=== PATIENT | male | born 1980 | race Caucasian/White ===

== ENCOUNTER 2019-10-09 09:03 | Emergency (ER) | payer MEDICAID, OTHER ==
[~2019-10-09] VITALS: Ht 182.9 cm; Wt 70.5 kg
[~2019-10-09 09:03] MED LIST: CHLO473M3 PO; CLIN-90 PO; CLIN150C17 PO; CLIN300C17 PO; ESOM20CA PO; HYDR-4383 PO; IBUP-1573 PO; OMEP-84 PO; ONDA4TAB6 PO; ONDA8TAB9 PO; PROM25TA14 PO; SUCR1ORA2 PO; SUCR1TAB PO; ZOF4T PO
--- NOTE | 2019-10-09 09:22 | NUR ---
ABRAN WHITING AT BEDSIDE.
[2019-10-09] MEDS ORDERED: famotidine/PF 10 mg/ml inj IV ONE (09:30)
[2019-10-09] MEDS ORDERED: normal saline 1000ML IV soln IVB ONE (09:30)
[2019-10-09] MEDS ORDERED: haloperidol lactate 5mg/ml inj IM ONE ×2 (09:30→10:35)
[2019-10-09] MEDS ORDERED: ketorolac tromethamine 15mg/ml inj. IV ONE (09:30)
[2019-10-09] MEDS ORDERED: proMETHazine 6.25 mg/5 ml UD oral syrup PO ONE (09:30)
[2019-10-09 09:55] LABS: BASOPHILS # (AUTO) 0.1 X10'3 (0-0.2); BASOPHILS % (AUTO) 0.4 % (0-1); EOSINOPHILS % (AUTO) 0 % (0-6); HEMATOCRIT 45.6 % (42.0-52.0); HEMOGLOBIN 15.9 g/dl (14.0-17.9); LYMPHOCYTES # (AUTO) 1.6 X10'3 (1.1-4.8); LYMPHOCYTES % (AUTO) 9.6 % (21-51); MEAN CORPUSCULAR HEMOGLOBIN 29.5 PG (27.0-31.0); MEAN CORPUSCULAR HGB CONC 34.9 g/dL (33.0-36.5); MEAN CORPUSCULAR VOLUME 84.7 FL (78-98); MEAN PLATELET VOLUME 7.1 FL (7.4-10.4); MONOCYTES # (AUTO) 1.1 X10'3 (0-0.9); MONOCYTES % (AUTO) 6.4 % (2-12); NEUTROPHILS # (AUTO) 14.3 X10'3 (1.8-7.7); NEUTROPHILS % (AUTO) 83.6 % (42-75); PLATELET COUNT 320 X10'3 (140-440); RED BLOOD COUNT 5.38 X10'6 (4.70-6.10); RED CELL DISTRIBUTION WIDTH 12.8 % (11.5-14.5); WHITE BLOOD COUNT 17.1 X10'3 (4.5-11.0)
[2019-10-09 10:08] LABS: ALANINE AMINOTRANSFERASE 24 U/L (12-78); ALBUMIN 4.6 G/DL (3.4-5.0); ALBUMIN/GLOBULIN RATIO 1.2 (1.1-1.5); ALKALINE PHOSPHATASE 90 IU/L (46-116); ANION GAP 13 (8-16); ASPARTATE AMINO TRANSFERASE 23 U/L (10-37); BILIRUBIN,TOTAL 0.9 MG/DL (0.1-1.0); BLOOD UREA NITROGEN 23 MG/DL (7-18); BUN/CREATININE RATIO 20.5 (5.4-32.0); CALCIUM 9.7 MG/DL (8.5-10.1); CHLORIDE 102 MMOL/L (99-107); CREATININE 1.12 MG/DL (0.60-1.10); GLUCOSE 136 MG/DL (70-104); LIPASE < 50 U/L (73-393); POTASSIUM 3.4 MMOL/L (3.5-5.1); SODIUM 142 MMOL/L (135-145); TOTAL CARBON DIOXIDE 27.5 MMOL/L (24-32); TOTAL PROTEIN 8.4 G/DL (6.4-8.2); eGFR 73 ML/MIN
[2019-10-09] MEDS ORDERED: LORazepam 2 mg/ml vial IV ONE (10:35)
[2019-10-09] MEDS ORDERED: normal saline 1000ml 1,000 ML IV ONE (11:00)
[2019-10-09] MEDS ORDERED: PROM25TA14 PO (11:25)
[2019-10-09 11:54] VITALS: BP 98/50
== END 2019-10-09 12:00 | disposition home or self-care (01) ==
LOC: ER 09:04
DX: R11.2 Nausea with vomiting, unspecified (principal); G89.29 Other chronic pain; F12.90 Cannabis use, unspecified, uncomplicated; F41.9 Anxiety disorder, unspecified; F17.200 Nicotine dependence, unspecified, uncomplicated; Z56.0 Unemployment, unspecified; Z88.0 Allergy status to penicillin; Z88.8 Allergy status to other drugs, medicaments and biological substances; Z79.899 Other long term (current) drug therapy; Z98.890 Other specified postprocedural states
CPT/HCPCS: 36415; 74018; 80053; 83690; 85025; 96361; 96372; 96374; 96375; 99284; J1630; J1885; J2060; J3490; J7030; Q0169

== ENCOUNTER 2019-10-24 20:18 | Emergency (ER) | payer OTHER ==
[~2019-10-24] VITALS: Ht 182.9 cm; Wt 70.5 kg
[2019-10-24 20:31] VITALS: BP 190/85
[2019-10-24 21:10] LABS: BASOPHILS # (AUTO) 0.1 X10'3 (0-0.2); BASOPHILS % (AUTO) 0.5 % (0-1); EOSINOPHILS % (AUTO) 0.2 % (0-6); HEMATOCRIT 46.5 % (42.0-52.0); LYMPHOCYTES # (AUTO) 1.5 X10'3 (1.1-4.8); LYMPHOCYTES % (AUTO) 10.4 % (21-51); MEAN CORPUSCULAR HEMOGLOBIN 29.2 PG (27.0-31.0); MEAN CORPUSCULAR HGB CONC 34.3 g/dL (33.0-36.5); MEAN CORPUSCULAR VOLUME 85.1 FL (78-98); MEAN PLATELET VOLUME 6.4 FL (7.4-10.4); MONOCYTES # (AUTO) 0.9 X10'3 (0-0.9); MONOCYTES % (AUTO) 5.9 % (2-12); PLATELET COUNT 336 X10'3 (140-440); RED BLOOD COUNT 5.47 X10'6 (4.70-6.10); RED CELL DISTRIBUTION WIDTH 12.7 % (11.5-14.5); WHITE BLOOD COUNT 14.5 X10'3 (4.5-11.0)
[2019-10-24 21:11] LABS: CLARITY,URINE CLEAR (Clear); COLOR,URINE YELLOW (Yellow); GLUCOSE, URINE NEGATIVE (Neg); KETONES,URINE 15 mg/dl (Neg); LEUKOCYTE ESTERASE ,URINE NEGATIVE (Neg); NITRITES, URINE NEGATIVE (Neg); OCCULT BLOOD,URINE NEGATIVE (Neg); PH,URINE 6.5 (4.8-8.0); PROTEIN,URINE TRACE mg/dl (Neg); UROBILINOGEN,URINE 0.2 E.U/dL (0.2-1.0)
[2019-10-24 21:17] LABS: UA COLLECTION TYPE CLN CATCH MIDSTREAM
[2019-10-24 21:18] LABS: BACTERIA,URINE FEW /HPF (Neg); MUCUS STRANDS MODERATE /LPF (Neg); RBC,URINE NONE SEEN /HPF (0-2); SQUAMOUS EPITHELIAL CELL,UR FEW /LPF (FEW); WBC,URINE 0-4 /HPF (0-4)
[2019-10-24 21:32] LABS: ALANINE AMINOTRANSFERASE 27 U/L (12-78); ALBUMIN 4.4 G/DL (3.4-5.0); ALBUMIN/GLOBULIN RATIO 1.3 (1.1-1.5); ALKALINE PHOSPHATASE 102 IU/L (46-116); ANION GAP 7 (8-16); ASPARTATE AMINO TRANSFERASE 20 U/L (10-37); BILIRUBIN,TOTAL 1.4 MG/DL (0.1-1.0); BLOOD UREA NITROGEN 12 MG/DL (7-18); BUN/CREATININE RATIO 11.9 (5.4-32.0); CALCIUM 9.2 MG/DL (8.5-10.1); CHLORIDE 105 MMOL/L (99-107); CREATININE 1.01 MG/DL (0.60-1.10); GLUCOSE 116 MG/DL (70-104); LIPASE 70 U/L (73-393); POTASSIUM 3.7 MMOL/L (3.5-5.1); SODIUM 140 MMOL/L (135-145); TOTAL CARBON DIOXIDE 27.7 MMOL/L (24-32); TOTAL PROTEIN 7.8 G/DL (6.4-8.2); eGFR 82 ML/MIN
[2019-10-24] MEDS ORDERED: ondansetron/PF 4mg/2ml inj IV ONE (23:30)
[2019-10-24] MEDS ORDERED: pantoprazole 40 MG vial IV ONE (23:30)
[2019-10-24] MEDS ORDERED: normal saline 1000ML IV soln IVB ONE (23:30)
[2019-10-24] MEDS ORDERED: mag hydrox/Alum hydrox/simeth 30ml oral suspension PO ONE (23:30)
[2019-10-25] MEDS ORDERED: L. R1CAP4 PO (00:40)
[2019-10-25] MEDS ORDERED: CLIN150C2 PO (00:40)
[2019-10-25] MEDS ORDERED: FAMO20TA8 PO (00:40)
[2019-10-25] MEDS ORDERED: DICY10CA88 PO (00:40)
== END 2019-10-25 00:52 | disposition home or self-care (01) ==
LOC: ER 20:20
DX: K04.7 Periapical abscess without sinus (principal); R11.2 Nausea with vomiting, unspecified; R10.13 Epigastric pain; G89.29 Other chronic pain; F10.99 Alcohol use, unspecified with unspecified alcohol-induced disorder; Z98.890 Other specified postprocedural states; Z88.0 Allergy status to penicillin; Z88.8 Allergy status to other drugs, medicaments and biological substances; Z79.899 Other long term (current) drug therapy; Y90.9 Presence of alcohol in blood, level not specified
CPT/HCPCS: 36415; 80053; 81001; 83690; 85025; 96361; 96374; 96375; 99283; C9113; J2405; J7030

== ENCOUNTER 2019-10-27 20:35 | Emergency (ER) | payer OTHER ==
[~2019-10-27] VITALS: Ht 185.4 cm; Wt 70.5 kg
[~2019-10-27 20:35] MED LIST changes: +CLIN150C2 PO; +DICY10CA88 PO; +FAMO20TA8 PO; +L. R1CAP4 PO
[2019-10-27] MEDS ORDERED: normal saline 1000ML IV soln IVB ONE (21:00)
[2019-10-27] MEDS ORDERED: ketorolac trometh. 30mg/ml inj. IV ONE (21:00)
[2019-10-27] MEDS ORDERED: CefTRIAXone/D5W-Rocephin 1gm 50 ML IV ONE (21:00)
[2019-10-27 21:23] LABS: BASOPHILS # (AUTO) 0.1 X10'3 (0-0.2); BASOPHILS % (AUTO) 0.5 % (0-1); EOSINOPHILS % (AUTO) 0.3 % (0-6); HEMATOCRIT 41.7 % (42.0-52.0); HEMOGLOBIN 14.3 g/dl (14.0-17.9); LYMPHOCYTES # (AUTO) 1.8 X10'3 (1.1-4.8); LYMPHOCYTES % (AUTO) 17.5 % (21-51); MEAN CORPUSCULAR HEMOGLOBIN 29.4 PG (27.0-31.0); MEAN CORPUSCULAR HGB CONC 34.4 g/dL (33.0-36.5); MEAN CORPUSCULAR VOLUME 85.4 FL (78-98); MEAN PLATELET VOLUME 6.4 FL (7.4-10.4); MONOCYTES # (AUTO) 1.1 X10'3 (0-0.9); MONOCYTES % (AUTO) 10.9 % (2-12); NEUTROPHILS # (AUTO) 7.3 X10'3 (1.8-7.7); NEUTROPHILS % (AUTO) 70.8 % (42-75); PLATELET COUNT 269 X10'3 (140-440); RED BLOOD COUNT 4.88 X10'6 (4.70-6.10); RED CELL DISTRIBUTION WIDTH 12.4 % (11.5-14.5); WHITE BLOOD COUNT 10.4 X10'3 (4.5-11.0)
[2019-10-27] MEDS ORDERED: iohexol 300mg/ml 100ml inj. ONE (21:31)
[2019-10-27 21:36] LABS: ALANINE AMINOTRANSFERASE 61 U/L (12-78); ALBUMIN 3.8 G/DL (3.4-5.0); ALBUMIN/GLOBULIN RATIO 1.1 (1.1-1.5); ALKALINE PHOSPHATASE 113 IU/L (46-116); ANION GAP 8 (8-16); ASPARTATE AMINO TRANSFERASE 36 U/L (10-37); BILIRUBIN,TOTAL 0.4 MG/DL (0.1-1.0); BLOOD UREA NITROGEN 11 MG/DL (7-18); BUN/CREATININE RATIO 12.5 (5.4-32.0); CALCIUM 8.5 MG/DL (8.5-10.1); CHLORIDE 102 MMOL/L (99-107); CREATININE 0.88 MG/DL (0.60-1.10); GLUCOSE 127 MG/DL (70-104); POTASSIUM 3.4 MMOL/L (3.5-5.1); SODIUM 138 MMOL/L (135-145); TOTAL CARBON DIOXIDE 28.3 MMOL/L (24-32); TOTAL PROTEIN 7.3 G/DL (6.4-8.2); eGFR > 90 ML/MIN
[2019-10-27] MEDS ORDERED: CEPH250T PO (22:48)
[2019-10-27] MEDS ORDERED: NAPR-56 PO (22:48)
[2019-10-27] MEDS ORDERED: TRAM50TA2 PO (22:48)
[2019-10-27 23:09] VITALS: BP 125/69
== END 2019-10-27 23:09 | disposition home or self-care (01) ==
LOC: ER 20:36
DX: K04.7 Periapical abscess without sinus (principal); G89.29 Other chronic pain; F41.9 Anxiety disorder, unspecified; F12.90 Cannabis use, unspecified, uncomplicated; Z88.0 Allergy status to penicillin; Z88.8 Allergy status to other drugs, medicaments and biological substances; Z79.899 Other long term (current) drug therapy; Z79.2 Long term (current) use of antibiotics; Z87.11 Personal history of peptic ulcer disease; Z56.0 Unemployment, unspecified; Z98.890 Other specified postprocedural states
CPT/HCPCS: 36415; 70487; 80053; 85025; 96365; 96375; 99284; J0696; J1885; J7030; Q9967

== ENCOUNTER 2020-11-02 12:14 | Emergency (ER) | payer MEDICAID ==
[~2020-11-02] VITALS: Ht 182.9 cm; Wt 70.0 kg
[~2020-11-02 12:14] MED LIST changes: -CLIN-90 PO; +CLIN-97 PO; -CLIN150C2 PO
[2020-11-02 12:42] LABS: BASOPHILS # (AUTO) 0.1 X10'3 (0-0.2); BASOPHILS % (AUTO) 0.6 % (0-1); EOSINOPHILS % (AUTO) 0 % (0-6); HEMATOCRIT 48.5 % (42.0-52.0); HEMOGLOBIN 16.8 g/dl (14.0-17.9); LYMPHOCYTES # (AUTO) 2.3 X10'3 (1.1-4.8); LYMPHOCYTES % (AUTO) 10.8 % (21-51); MEAN CORPUSCULAR HEMOGLOBIN 28.9 PG (27.0-31.0); MEAN CORPUSCULAR HGB CONC 34.6 g/dL (33.0-36.5); MEAN CORPUSCULAR VOLUME 83.5 FL (78-98); MEAN PLATELET VOLUME 6.9 FL (7.4-10.4); MONOCYTES # (AUTO) 1.8 X10'3 (0-0.9); MONOCYTES % (AUTO) 8.4 % (2-12); NEUTROPHILS # (AUTO) 16.7 X10'3 (1.8-7.7); NEUTROPHILS % (AUTO) 80.2 % (42-75); PLATELET COUNT 347 X10'3 (140-440); RED BLOOD COUNT 5.81 X10'6 (4.70-6.10); WHITE BLOOD COUNT 20.9 X10'3 (4.5-11.0)
[2020-11-02] MEDS ORDERED: ondansetron/PF 4mg/2ml inj IV ONE (12:45)
[2020-11-02] MEDS ORDERED: diphenhydrAMINE 50 mg/ml inj IV ONE (12:45)
[2020-11-02] MEDS ORDERED: ketorolac trometh. 30mg/ml inj. IV ONE (12:45)
[2020-11-02] MEDS ORDERED: haloperidol lactate 5mg/ml inj IM ONE (12:45)
[2020-11-02] MEDS ORDERED: normal saline 1000ML IV soln IVB ONE (12:45)
[2020-11-02 12:53] LABS: ALANINE AMINOTRANSFERASE 38 U/L (12-78); ALBUMIN 4.9 G/DL (3.4-5.0); ALBUMIN/GLOBULIN RATIO 1.2 (1.1-1.5); ALKALINE PHOSPHATASE 98 IU/L (46-116); AMYLASE 52 U/L (25-115); ANION GAP 13 (8-16); ASPARTATE AMINO TRANSFERASE 32 U/L (10-37); BILIRUBIN,TOTAL 2.1 MG/DL (0.1-1.0); BLOOD UREA NITROGEN 41 MG/DL (7-18); BUN/CREATININE RATIO 32.3 (5.4-32.0); CALCIUM 9.7 MG/DL (8.5-10.1); CHLORIDE 100 MMOL/L (99-107); CREATININE 1.27 MG/DL (0.60-1.10); GLUCOSE 120 MG/DL (70-104); LIPASE 63 U/L (73-393); SODIUM 139 MMOL/L (135-145); TOTAL CARBON DIOXIDE 26.2 MMOL/L (24-32); eGFR 62 ML/MIN
[2020-11-02 15:36] VITALS: BP 137/80
== END 2020-11-02 15:40 | disposition home or self-care (01) ==
LOC: ER 12:14
DX: R11.15 Cyclical vomiting syndrome unrelated to migraine (principal); R11.2 Nausea with vomiting, unspecified; R10.10 Upper abdominal pain, unspecified; G89.29 Other chronic pain; F41.9 Anxiety disorder, unspecified; F17.200 Nicotine dependence, unspecified, uncomplicated; F12.90 Cannabis use, unspecified, uncomplicated; Z87.11 Personal history of peptic ulcer disease; Z72.89 Other problems related to lifestyle; Z56.0 Unemployment, unspecified; Z88.0 Allergy status to penicillin; Z88.8 Allergy status to other drugs, medicaments and biological substances; Z79.2 Long term (current) use of antibiotics; Z79.899 Other long term (current) drug therapy
CPT/HCPCS: 36415; 80053; 82150; 83690; 85025; 96361; 96372; 96374; 96375; 99284; J1200; J1630; J1885; J2405; J7030

== ENCOUNTER 2021-02-14 18:17 | Emergency (ER) | payer MEDICAID ==
[~2021-02-14] VITALS: Ht 182.9 cm; Wt 75.0 kg
[2021-02-14 19:13] LABS: BASOPHILS # (AUTO) 0.1 X10'3 (0-0.2); BASOPHILS % (AUTO) 0.5 % (0-1); EOSINOPHILS % (AUTO) 0 % (0-6); HEMOGLOBIN 16.7 g/dl (14.0-17.9); LYMPHOCYTES # (AUTO) 2.2 X10'3 (1.1-4.8); MEAN CORPUSCULAR HEMOGLOBIN 28.6 PG (27.0-31.0); MEAN CORPUSCULAR HGB CONC 34.1 g/dL (33.0-36.5); MEAN CORPUSCULAR VOLUME 83.7 FL (78-98); MONOCYTES # (AUTO) 1.4 X10'3 (0-0.9); MONOCYTES % (AUTO) 6.3 % (2-12); NEUTROPHILS # (AUTO) 18.2 X10'3 (1.8-7.7); NEUTROPHILS % (AUTO) 83.2 % (42-75); PLATELET COUNT 362 X10'3 (140-440); RED BLOOD COUNT 5.86 X10'6 (4.70-6.10); RED CELL DISTRIBUTION WIDTH 13.1 % (11.5-14.5); WHITE BLOOD COUNT 21.9 X10'3 (4.5-11.0)
[2021-02-14 19:22] LABS: ALANINE AMINOTRANSFERASE 30 U/L (12-78); ALBUMIN 5.1 G/DL (3.4-5.0); ALBUMIN/GLOBULIN RATIO 1.2 (1.1-1.5); ALKALINE PHOSPHATASE 95 IU/L (46-116); ANION GAP 14 (8-16); ASPARTATE AMINO TRANSFERASE 16 U/L (10-37); BILIRUBIN,TOTAL 1.3 MG/DL (0.1-1.0); BLOOD UREA NITROGEN 38 MG/DL (7-18); CALCIUM 10.2 MG/DL (8.5-10.1); CHLORIDE 103 MMOL/L (99-107); CREATININE 1.46 MG/DL (0.60-1.10); GLUCOSE 156 MG/DL (70-104); LIPASE 73 U/L (73-393); POTASSIUM 4.2 MMOL/L (3.5-5.1); SODIUM 143 MMOL/L (135-145); TOTAL CARBON DIOXIDE 25.8 MMOL/L (24-32); TOTAL PROTEIN 9.2 G/DL (6.4-8.2); eGFR 53 ML/MIN
[2021-02-14] MEDS ORDERED: normal saline 1000ML IV soln IVB ONE (19:45)
[2021-02-14] MEDS ORDERED: haloperidol lactate 5mg/ml inj IM ONE (19:50)
[2021-02-14] MEDS ORDERED: LORazepam 2 mg/ml vial IV ONE (19:55)
--- NOTE | 2021-02-14 20:06 | NUR ---
patient provided urinal for urine sample
--- NOTE | 2021-02-14 20:15 | NUR ---
patieent unable to void, stood at bedside
--- NOTE | 2021-02-14 20:38 | NUR ---
WITH PATIENT' PERMISSION, SPOKE WITH MOTHER
--- NOTE | 2021-02-14 21:35 | NUR ---
Mother called, she is on her way to come and get him.
[2021-02-14 21:37] VITALS: BP 107/66
== END 2021-02-14 22:12 | disposition home or self-care (01) ==
LOC: ER 18:17
DX: R11.15 Cyclical vomiting syndrome unrelated to migraine (principal); R11.2 Nausea with vomiting, unspecified; R10.13 Epigastric pain; E86.0 Dehydration; G89.29 Other chronic pain; F41.9 Anxiety disorder, unspecified; F17.200 Nicotine dependence, unspecified, uncomplicated; F12.90 Cannabis use, unspecified, uncomplicated; Z87.11 Personal history of peptic ulcer disease; Z72.89 Other problems related to lifestyle; Z56.0 Unemployment, unspecified; Z98.890 Other specified postprocedural states; Z88.0 Allergy status to penicillin; Z88.8 Allergy status to other drugs, medicaments and biological substances; Z79.2 Long term (current) use of antibiotics; Z79.899 Other long term (current) drug therapy
CPT/HCPCS: 36415; 80053; 83690; 85025; 96372; 96374; 99284; J1630; J2060; J7030; 96361

== ENCOUNTER 2021-02-16 21:52 | Inpatient (IN) | payer MEDICAID ==
[~2021-02-16] VITALS: Ht 185.4 cm; Wt 75.2 kg
[2021-02-16] MEDS ORDERED: ondansetron 4mg rapidly disintigrating tab PO STA (21:58)
[2021-02-16] MEDS ORDERED: haloperidol lactate 5mg/ml inj IM ONE (23:20)
[2021-02-16] MEDS ORDERED: LORazepam 2 mg/ml vial IV ONE (23:55)
[2021-02-16] MEDS ORDERED: normal saline 1000ml 1,000 ML IV ONE (23:55)
[2021-02-17 00:24] LABS: ANION GAP 12 (8-16); BLOOD UREA NITROGEN 19 MG/DL (7-18); CALCIUM 9.3 MG/DL (8.5-10.1); CHLORIDE 103 MMOL/L (99-107); CREATININE 1.12 MG/DL (0.60-1.10); GLUCOSE 167 MG/DL (70-104); POTASSIUM 3.8 MMOL/L (3.5-5.1); SODIUM 142 MMOL/L (135-145); TOTAL CARBON DIOXIDE 26.9 MMOL/L (24-32); eGFR 72 ML/MIN
[2021-02-17 00:25] LABS: ALBUMIN 4.7 G/DL (3.4-5.0)
[2021-02-17] MEDS ORDERED: metoclopramide 5 mg/ml inj IV ONE (02:15)
[2021-02-17] MEDS ORDERED: diphenhydrAMINE 50 mg/ml inj IV ONE ×2 (02:15→06:20)
[2021-02-17] MEDS ORDERED: iohexol 300mg/ml 100ml inj. ONE (03:21)
[2021-02-17] MEDS ORDERED: diphenhydrAMINE 50 mg/ml inj IV STA (03:38)
[2021-02-17 04:44] LABS: BASOPHILS # (AUTO) 0.2 X10'3 (0-0.2); BASOPHILS % (AUTO) 1.3 % (0-1); EOSINOPHILS # (AUTO) 0.1 X10'3 (0-0.9); EOSINOPHILS % (AUTO) 0.4 % (0-6); HEMATOCRIT 46.1 % (42.0-52.0); HEMOGLOBIN 15.6 g/dl (14.0-17.9); LYMPHOCYTES # (AUTO) 2.2 X10'3 (1.1-4.8); LYMPHOCYTES % (AUTO) 14.7 % (21-51); MEAN CORPUSCULAR HEMOGLOBIN 28.9 PG (27.0-31.0); MEAN CORPUSCULAR HGB CONC 33.8 g/dL (33.0-36.5); MEAN CORPUSCULAR VOLUME 85.5 FL (78-98); MEAN PLATELET VOLUME 7.4 FL (7.4-10.4); MONOCYTES % (AUTO) 6.9 % (2-12); NEUTROPHILS # (AUTO) 11.3 X10'3 (1.8-7.7); NEUTROPHILS % (AUTO) 76.7 % (42-75); PLATELET COUNT 365 X10'3 (140-440); RED BLOOD COUNT 5.39 X10'6 (4.70-6.10); RED CELL DISTRIBUTION WIDTH 12.7 % (11.5-14.5); WHITE BLOOD COUNT 14.8 X10'3 (4.5-11.0)
[2021-02-17] MEDS ORDERED: haloperidol lactate 5mg/ml inj IM ONE ×2 (06:20→06:45)
[2021-02-17] MEDS ORDERED: morphine 2 MG/ML inj. syringe IV PRN (06:35)
[2021-02-17] MEDS ORDERED: potassium Cl 20 mEq SR tablet PO PRN ×2 (06:35)
[2021-02-17] MEDS ORDERED: magnesium Cl slow-release 64mg tablet PO PRN (06:35)
[2021-02-17] MEDS ORDERED: acetaminophen 325mg tablet PO PRN (06:35)
[2021-02-17] MEDS ORDERED: ondansetron/PF 4mg/2ml inj IV PRN (06:35)
[2021-02-17] MEDS ORDERED: magnesium 4gm in 100ml NS 100 ML IV PRN (06:35)
[2021-02-17] MEDS ORDERED: magnesium 2GM in 50ml NS 50 ML IV PRN (06:35)
[2021-02-17] MEDS ORDERED: potassium Cl 40MEQ/1/2NS 520ml 520 ML IV PRN ×2 (06:35)
[2021-02-17] MEDS: normal saline 1000ml 1,000 ML IV SCH ×2 (06:57→15:51)
[2021-02-17] MEDS: K and/or MAG REPLACEMENT MC SCH ×2 (08:00→20:00)
[2021-02-17 12:09] LABS: HEMOGLOBIN 13.4 g/dl (14.0-17.9); MEAN PLATELET VOLUME 6.5 FL (7.4-10.4); PLATELET COUNT 281 X10'3 (140-440)
[2021-02-17 12:10] LABS: BASOPHILS % (AUTO) 0.4 % (0-1); EOSINOPHILS % (AUTO) 0.2 % (0-6); HEMATOCRIT 39.6 % (42.0-52.0); LYMPHOCYTES # (AUTO) 2.6 X10'3 (1.1-4.8); LYMPHOCYTES % (AUTO) 24.4 % (21-51); MEAN CORPUSCULAR HEMOGLOBIN 28.7 PG (27.0-31.0); MEAN CORPUSCULAR HGB CONC 33.9 g/dL (33.0-36.5); MEAN CORPUSCULAR VOLUME 84.8 FL (78-98); MONOCYTES # (AUTO) 0.8 X10'3 (0-0.9); MONOCYTES % (AUTO) 7.7 % (2-12); NEUTROPHILS # (AUTO) 7.3 X10'3 (1.8-7.7); NEUTROPHILS % (AUTO) 67.3 % (42-75); RED BLOOD COUNT 4.66 X10'6 (4.70-6.10); RED CELL DISTRIBUTION WIDTH 12.6 % (11.5-14.5); WHITE BLOOD COUNT 10.8 X10'3 (4.5-11.0)
[2021-02-17] MEDS ORDERED: NO HOME MEDS (14:49)
--- NOTE | 2021-02-17 14:58 | NUR ---
Called ED for report. ED nurse unavailable at this time to give report.
--- NOTE | 2021-02-17 15:30 | NUR ---
Patient in room ED 16. I have received report from JOHN Lainez and had the opportunity to ask questions and assume patient care.
--- NOTE | 2021-02-17 16:11 | NUR ---
Received patient to Room 350B, oriented patient to room and call light. Patient is alert and oriented, no nausea and vomiting. Made patient comfortable, arrived in a hospital bed. Patient placed belongings in bedside table. Skin check done.
--- NOTE | 2021-02-17 17:54 | NUR ---
PAGER ID: [phone] MESSAGE: Lalasesarsammy Puente [phone] - Room 350B - Patient and ED nurse stated the only med that worked for his nausea so far has been the Haldol dose received in the ER this AM. Possible to have an order for Haldol PRN?
[2021-02-17] MEDS ORDERED: haloperidol 1mg tablet PO PRN (18:00)
--- NOTE | 2021-02-17 18:24 | NUR ---
Patient in room [facility]. I have received report from Monica/JOHN Jules'S and had the opportunity to ask questions and assume patient care.
[2021-02-17 18:30] VITALS: BP 113/61
--- NOTE | 2021-02-17 19:04 | NUR ---
Problems reprioritized. Patient report given, questions answered & plan of care reviewed with JOHN Valenzuela.
[2021-02-17 23:33] VITALS: BP 113/70
[2021-02-18] MEDS: normal saline 1000ml 1,000 ML IV SCH ×2 (02:13→12:35)
[2021-02-18 06:16] LABS: BASOPHILS # (AUTO) 0.1 X10'3 (0-0.2); BASOPHILS % (AUTO) 0.9 % (0-1); EOSINOPHILS # (AUTO) 0.1 X10'3 (0-0.9); EOSINOPHILS % (AUTO) 1.4 % (0-6); HEMATOCRIT 38.9 % (42.0-52.0); LYMPHOCYTES # (AUTO) 3.5 X10'3 (1.1-4.8); LYMPHOCYTES % (AUTO) 37.7 % (21-51); MEAN CORPUSCULAR HEMOGLOBIN 28.4 PG (27.0-31.0); MEAN CORPUSCULAR HGB CONC 33.4 g/dL (33.0-36.5); MEAN CORPUSCULAR VOLUME 85.2 FL (78-98); MEAN PLATELET VOLUME 6.9 FL (7.4-10.4); MONOCYTES # (AUTO) 0.7 X10'3 (0-0.9); MONOCYTES % (AUTO) 7.5 % (2-12); NEUTROPHILS # (AUTO) 4.9 X10'3 (1.8-7.7); NEUTROPHILS % (AUTO) 52.5 % (42-75); PLATELET COUNT 262 X10'3 (140-440); RED BLOOD COUNT 4.56 X10'6 (4.70-6.10); RED CELL DISTRIBUTION WIDTH 12.7 % (11.5-14.5); WHITE BLOOD COUNT 9.3 X10'3 (4.5-11.0)
[2021-02-18 06:36] LABS: ALBUMIN 3.2 G/DL (3.4-5.0); ANION GAP 6 (8-16); BLOOD UREA NITROGEN 12 MG/DL (7-18); BUN/CREATININE RATIO 15.8 (5.4-32.0); CALCIUM 8.3 MG/DL (8.5-10.1); CHLORIDE 111 MMOL/L (99-107); CREATININE 0.76 MG/DL (0.60-1.10); GLUCOSE 100 MG/DL (70-104); MAGNESIUM 2.3 MG/DL (1.5-2.4); POTASSIUM 3.6 MMOL/L (3.5-5.1); SODIUM 144 MMOL/L (135-145); TOTAL CARBON DIOXIDE 26.9 MMOL/L (24-32); eGFR > 90 ML/MIN
--- NOTE | 2021-02-18 06:42 | NUR ---
Patient in room [facility] 350. I have received report from JOHN Sorenson and had the opportunity to ask questions and assume patient care.
[2021-02-18 08:00] VITALS: BP 122/59
[2021-02-18] MEDS: K and/or MAG REPLACEMENT MC SCH (08:00)
[2021-02-18] MEDS ORDERED: ONDA4TAB6 PO (10:53)
[2021-02-18] MEDS ORDERED: ACET-1008 PO (10:54)
[2021-02-18 11:00] VITALS: BP 125/64
--- NOTE | 2021-02-18 11:17 | NUR ---
Orientee documentation: I have reviewed and agree with all interventions, assessments performed and documented by JOHN Schmidt. [place]ee Medication Administration: For this medication-pass time frame, all medication were reviewed, dispensed, administered and documented per hospital policy by JOHN Schmidt.
--- NOTE | 2021-02-18 13:30 | NUR ---
Patient discharged to home with mom accompanying and driving. Patient discharged with all belongings, alert and oriented. Patient was given opportunity to ask questions and have them answered. Patient to follow up with primary care physician within one week. Patient ambulated himself to the front of the hospital. Patient provided with discharge instructions and recommendations for care.
== END 2021-02-18 13:40 | disposition home or self-care (01) | DRG 249 ==
LOC: ER 21:53 → ED HOLD 02-17 06:31 → SUR 3N 02-17 15:40
PROVIDERS: ADMIT Internal Medicine; ATTEND Internal Medicine
PROC: BW211ZZ Computerized Tomography (CT Scan) of Abdomen and Pelvis using Low Osmolar Contrast (ICD-10-PCS; principal; 2021-02-17)
DX: R11.15 Cyclical vomiting syndrome unrelated to migraine (principal); N18.30 Chronic kidney disease, stage 3 unspecified; F12.90 Cannabis use, unspecified, uncomplicated; F17.210 Nicotine dependence, cigarettes, uncomplicated; F41.9 Anxiety disorder, unspecified; G89.29 Other chronic pain; Z79.899 Other long term (current) drug therapy; Z87.11 Personal history of peptic ulcer disease; Z88.0 Allergy status to penicillin; Z88.8 Allergy status to other drugs, medicaments and biological substances
CPT/HCPCS: 36415; 74177; 80048; 83605; 83735; 84145; 85025; 87040; 87081; 96372; 96374; 99285; G0378; J1200; J1630; J2060; J2765; J7030; Q9967

== ENCOUNTER 2022-07-10 09:28 | Emergency (ER) | payer MEDICAID ==
[~2022-07-10] VITALS: Ht 182.9 cm; Wt 72.7 kg
[~2022-07-10 09:28] MED LIST changes: -CHLO473M3 PO; -CLIN-97 PO; -CLIN150C17 PO; -CLIN300C17 PO; -DICY10CA88 PO; -ESOM20CA PO; -FAMO20TA8 PO; -HYDR-4383 PO; -IBUP-1573 PO; -L. R1CAP4 PO; +NO HOME MEDS; -OMEP-84 PO; -ONDA8TAB9 PO; -PROM25TA14 PO; -SUCR1ORA2 PO; -SUCR1TAB PO; -ZOF4T PO
[2022-07-10 10:08] LABS: BASOPHILS % (AUTO) 0.3 % (0-1); EOSINOPHILS % (AUTO) 0 % (0-6); HEMATOCRIT 46.7 % (42.0-52.0); HEMOGLOBIN 15.5 g/dl (14.0-17.9); LYMPHOCYTES # (AUTO) 1.9 X10'3 (1.1-4.8); MEAN CORPUSCULAR HGB CONC 33.1 g/dL (33.0-36.5); MEAN CORPUSCULAR VOLUME 84.4 FL (78-98); MEAN PLATELET VOLUME 6.7 FL (7.4-10.4); MONOCYTES # (AUTO) 0.7 X10'3 (0-0.9); MONOCYTES % (AUTO) 5.4 % (2-12); NEUTROPHILS % (AUTO) 80.3 % (42-75); PLATELET COUNT 350 X10'3 (140-440); RED BLOOD COUNT 5.53 X10'6 (4.70-6.10); RED CELL DISTRIBUTION WIDTH 13.6 % (11.5-14.5); WHITE BLOOD COUNT 13.8 X10'3 (4.5-11.0)
[2022-07-10 10:08] LABS: ALANINE AMINOTRANSFERASE 18 U/L (12-78); ALBUMIN 4.4 G/DL (3.4-5.0); ALBUMIN/GLOBULIN RATIO 1.2 (1.1-1.5); ALKALINE PHOSPHATASE 82 IU/L (46-116); ANION GAP 9 (8-16); ASPARTATE AMINO TRANSFERASE 19 U/L (10-37); BILIRUBIN,TOTAL 1.3 MG/DL (0.1-1.0); BLOOD UREA NITROGEN 20 MG/DL (7-18); BUN/CREATININE RATIO 21.1 (5.4-32.0); CALCIUM 9.4 MG/DL (8.5-10.1); CHLORIDE 101 MMOL/L (99-107); CREATININE 0.95 MG/DL (0.60-1.10); GLUCOSE 116 MG/DL (70-104); LIPASE 58 U/L (73-393); SODIUM 140 MMOL/L (135-145); TOTAL PROTEIN 8.2 G/DL (6.4-8.2); eGFR 87 ML/MIN
[2022-07-10] MEDS ORDERED: normal saline 1000ml 1,000 ML IV ONE (10:55)
[2022-07-10] MEDS ORDERED: ondansetron/PF 4mg/2ml inj IV ONE (10:55)
[2022-07-10] MEDS ORDERED: haloperidol decanoate***LONG-ACTING*** 100mg/ml **IM only** inj. IM ONE (11:05)
[2022-07-10] MEDS ORDERED: haloperidol lactate 5mg/ml inj IM ONE ×2 (11:10)
--- NOTE | 2022-07-10 11:12 | NUR ---
HALOPERIDOL ADMIN BY DR CRAIG .
[2022-07-10] MEDS ORDERED: diphenhydrAMINE 50 mg/ml inj IV ONE (11:15)
[2022-07-10 12:13] VITALS: BP 119/76
[2022-07-10] MEDS ORDERED: ONDA-103 PO (12:28)
== END 2022-07-10 12:49 | disposition home or self-care (01) ==
LOC: ER 09:31
DX: R11.2 Nausea with vomiting, unspecified (principal); G89.29 Other chronic pain; F12.90 Cannabis use, unspecified, uncomplicated; Z88.0 Allergy status to penicillin; Z88.8 Allergy status to other drugs, medicaments and biological substances; Z56.0 Unemployment, unspecified
CPT/HCPCS: 36415; 80053; 83690; 85025; 96374; 96375; 99284; J1200; J2405; J7030

== ENCOUNTER 2023-04-04 16:26 | Emergency (ER) | payer MEDICAID ==
[~2023-04-04 16:26] MED LIST changes: +ONDA-103 PO
== END 2023-04-04 17:20 | disposition left against medical advice (07) ==
LOC: ER 16:26
DX: M54.9 Dorsalgia, unspecified (principal); Z53.21 Procedure and treatment not carried out due to patient leaving prior to being seen by health care provider